=== PATIENT | male | born 1980 | race Hispanic/Latino ===

== ENCOUNTER 2025-05-24 23:40 | Emergency (ER) | payer OTHER ==
[~2025-05-24] VITALS: Ht 172.7 cm; Wt 99.8 kg
--- NOTE | 2025-05-25 00:06 | NUR ---
C-COLLAR REMOVED BY MIRTA GUAMAN AT THIS TIME.
[2025-05-25 00:10] VITALS: TEMP 98.2
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
[2025-05-25 00:54] LABS: IMMATURE GRANULOCYTE ABSOLUTE 0.01 K/uL (0-1); NUCLEATED RED BLOOD CELLS 0.0 % (0.0-0.19); PLATELET COUNT (AUTO) 190 K/uL (130-400); RED BLOOD CELL COUNT(AUTO) 4.72 MIL/uL (4.50-6.20); RED CELL DISTRIBUTION WIDTH 13.4 % (11.0-15.5); WHITE BLOOD COUNT (AUTO) 7.5 K/uL (4.8-10.8)
[2025-05-25] MEDS: CYCLOBENZAPRINE HCL 10 MG TABLET PO ONE (01:00)
[2025-05-25] MEDS: LACTATED RINGERS 1000ML IV STA (01:01)
[2025-05-25 01:04] LABS: CREATININE 0.7 mg/dL (0.5-1.3); GLOMERULAR FILTR. RATE CALC 114 mL/min (>90); GLUCOSE,RANDOM 220 mg/dL (70-105); SODIUM SERUM 140 mmol/L (136-145); UREA NITROGEN, BLOOD 17 mg/dL (7-18)
[2025-05-25 01:08] LABS: ASPARTATE AMINOTRANSFERASE 23 U/L (10-37); TOTAL PROTEIN, SERUM 7.1 g/dL (6.0-8.3)
[2025-05-25 01:35] LABS: ALCOHOL, BLOOD < 3 mg/dL (0-10)
[2025-05-25] MEDS ORDERED: IOHEXOL 350 MG/ML 100ML INFUS..BTL IV ONE (01:42)
[2025-05-25 02:21] LABS: AMPHET/METH SCREEN,URINE NEGATIVE (NEGATIVE); BARBITURATE SCREEN, URINE NEGATIVE (NEGATIVE); CANNABINOID SCREEN,URINE NEGATIVE (NEGATIVE); COCAINE SCREEN,URINE NEGATIVE (NEGATIVE)
[2025-05-25 03:00] VITALS: BP 118/70; PULSE 81; RESP 17; O2SAT 96
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
== END 2025-05-25 03:13 | disposition home or self-care (01) ==
LOC: EDH 23:40
DX: R07.89 Other chest pain (principal); M25.519 Pain in unspecified shoulder; M54.2 Cervicalgia; V89.2XXA Person injured in unspecified motor-vehicle accident, traffic, initial encounter; Y93.89 Activity, other specified; Y92.89 Other specified places as the place of occurrence of the external cause; Y99.8 Other external cause status
CPT/HCPCS: 99285; 80053; 80305; 85025; 36415; 70450; 96374; 71260; 74177; J1885; J7120; Q9967